=== PATIENT | male | born 1990 ===

== ENCOUNTER 2019-10-08 01:38 | Emergency (ER) | payer SELFPAY ==
[~2019-10-08] VITALS: Ht 172.7 cm; Wt 87.5 kg
[2019-10-08 01:40] VITALS: Ht 172.7 cm; Wt 87.5 kg
[2019-10-08 02:48] LABS: BASOPHIL % 0.8 % (0-2); PLATELET COUNT 224 x10^3mcL (130-400); RED CELL DISTRIBUTION WIDTH 12.7 % (11.5-14.5)
[2019-10-08 03:04] LABS: CALCIUM 8.5 mg/dL (8.5-10.1); CARBON DIOXIDE 32.4 mmol/L (21-32); CHLORIDE SERUM 104 mmol/L (98-107); CREATININE SERUM 1.3 mg/dL (0.7-1.3); GFR1 > 60 mL/min; GLUCOSE SERUM 115 mg/dL (74-106); POTASSIUM SERUM 3.4 mmol/L (3.5-5.1); SODIUM SERUM 139 mmol/L (136-145)
[2019-10-08 03:07] VITALS: BP 130/65
[2019-10-08 03:07] LABS: ALBUMIN 3.9 g/dL (3.4-5.0); ALKALINE PHOSPHATASE 62 U/L (46-116); ALT/SGPT 17 U/L (16-63); AST/SGOT 13 U/L (15-37); BILIRUBIN TOTAL 0.43 mg/dL (0.20-1.00); TOTAL PROTEIN, SERUM 6.7 g/dL (6.4-8.2)
== END 2019-10-08 03:07 | disposition left against medical advice (07) ==
LOC: ED 01:38
PROVIDERS: Emergency Medicine
DX: F41.9 Anxiety disorder, unspecified (principal)